=== PATIENT | male | born 1945 | race Caucasian/White ===

== ENCOUNTER → 2020-08-16 | Outpatient (CLI) | payer MEDICARE, BC ==
[~2020-08-16] MED LIST: ASPI-630 PO; ATOR10TA60 PO; CETI5TAB2 PO; IRBE1TAB5 PO
== END | disposition home or self-care (01) ==
LOC: LAB 13:20
PROVIDERS: ATTEND Registered Nurse
DX: Z20.828 Contact with and (suspected) exposure to other viral communicable diseases (principal)
CPT/HCPCS: U0003-CS

== ENCOUNTER → 2020-08-20 | Day surgery (SDC) | payer MEDICARE, BC ==
[~2020-08-20] MED LIST changes: +IPRATRPIUM/ALBUTEROL 0.5/2.5MG 3 ML NEBU. NEB PRN; +IV RINGERS SOLUTION,LACTATED 1,000 ML IV SCH; +MIDAZOLAM HCL PF 2 MG/2 ML VIAL. IV ONE; +ONDANSETRON PF 4 MG/2 ML VIAL. IV PRN; +PROPOFOL 10,000 MCG/ML (20ML) VIAL IV ONE
[2020-08-20 08:18] VITALS: BP 160/109
--- NOTE | 2020-08-21 15:08 | PATHOLOGY ---
[facility] Accession Number: [id number] . 01 Material submitted: . PART A: colon - DESCENDING COLON POLYP. Modifiers: descending PART B: colon - TRANSVERSE POLYP. Modifiers: transverse . 02 Diagnosis: A. Colon biopsy, descending colon polyp: - Tubular adenoma. . B. Colon biopsies, transverse colon polyp: - Tubular adenoma. . ([facility]:mm; 08/21/2020) [facility] 08/21/2020 0955 Local . 02 Comment: There is no high grade dysplasia or evidence of malignancy. . ([facility]:mml; 08/21/2020) . 02 Electronically signed: . Magnus Kruse MD, Pathologist NPI- [id number] . 01 Gross description: . A. Received in formalin labeled "Hakeem Garcia, descending colon polyp" is a fragment of robb-brown soft tissue measuring 0.4 x 0.3 x 0.1 cm. The specimen is submitted entirely in A1. . B. Received in formalin labeled "Radha, Hakeem, transverse polyp" are two robb-brown soft tissue fragments measuring in aggregate 0.5 x 0.3 x 0.1 cm. The specimen is submitted entirely in B1. ([facility]; 08/20/2020) [facility] 08/20/2020 1705 Local . 02 Pathologist provided ICD-10: D12.4, D12.3 . 02 CPT . 825103, 831403 Specimen Comment: A courtesy copy of this report has been sent to [phone] Specimen Comment: [id number] Specimen Comment: Report sent to / DR IVY Performed at: [address], [place], [place] [id number] MD Sean Golden MD Phone: [phone] Performed at: [address] [id number] MD Magnus Kruse MD Phone: [phone]
== END | disposition home or self-care (01) ==
LOC: SURG 06:19
PROVIDERS: ATTEND Emergency Medicine
DX: Z12.11 Encounter for screening for malignant neoplasm of colon (principal); D12.3 Benign neoplasm of transverse colon; D12.4 Benign neoplasm of descending colon; K57.30 Diverticulosis of large intestine without perforation or abscess without bleeding; I10 Essential (primary) hypertension; I49.9 Cardiac arrhythmia, unspecified; Z90.79 Acquired absence of other genital organ(s); Z90.49 Acquired absence of other specified parts of digestive tract; Z98.890 Other specified postprocedural states; Z86.010 Personal history of colon polyps; Z79.82 Long term (current) use of aspirin; Z79.899 Other long term (current) drug therapy; Z87.891 Personal history of nicotine dependence
CPT/HCPCS: 45380; 88305; J2704; J7120